=== PATIENT | female | born 1945 | race Caucasian/White ===

== ENCOUNTER 2016-07-25 18:54 | Emergency (ER) | payer MEDICARE, BC ==
--- OUTSIDE RECORDS SUMMARY | 2016-07-25 19:35 | XMS REPORT | Continuity of Care Document ---
:1945 Author Organization [facility] ([facility]) Address [place] [address] Phone [phone] Care Team Providers Name Role Phone Johnie Rai Primary Care Provider [phone] Source Comments This disclosure is being made pursuant to the Care Everywhere program, applicable federal and state laws, and may not contain all informaitonavailable regarding this patient.[facility] ([facility]) Active Allergies and Adverse Reactions No Known Allergies Current Medications Prescription Sig. Disp. Refills Start Date End Date Status amLODIPine 5 mg tablet Take 5 mg by Active mouth daily anastrozole 1 mg tablet Take 1 mg by Active mouth daily benazepril 20 mg tablet Take 40 mg by Active mouth daily cyclobenzaprine 10 mg Take 10 mg by Active tablet mouth 2 times daily as needed furosemide 40 mg tablet Take 40 mg by Active mouth daily lovaSTATIN 40 mg tablet Take 40 mg by Active mouth every evening nitroglycerin 0.[address] 0.4 mg Active tablet under the tongue every 5 minutes as needed omeprazole 20 mg enteric Take 20 mg by Active coated capsule mouth daily diltiazem 240 mg ER Take 1 capsule 30 capsule 11 12/27/2014 Active capsule (240 mg total) by mouth daily Active Problems Problem Noted Date Palpitations 12/03/2014 Essential hypertension 12/03/2014 Hyperlipidemia 12/03/2014 Morbid obesity 12/03/2014 Social History Tobacco Use Types Packs/Day Years Used Date Never Assessed Last Filed Vital Signs Vital Sign Reading Time Taken Blood Pressure 110/68 12/04/2014 1:39 PM CDT Pulse 60 12/04/2014 1:39 PM CDT Temperature - - Respiratory Rate - - Height 1.524 m (5') 12/04/2014 1:39 PM CDT Weight 130.636 kg (288 lb) 12/04/2014 1:39 PM CDT Body Mass Index 56.25 12/04/2014 1:39 PM CDT Oxygen Saturation - - Plan of Care Health Maintenance Due Date Last Done Comments HCV Screening 1945 Hepatitis B Vaccine (1 of 3 - Primary Series) 1945 Tdap Vaccine 1957 Lipid Disorder Screening 1964 Td Vaccine 1964 Mammogram 1986 Colonoscopy 04/15/1996 Zoster Vaccine 2006 Osteoporosis Screening (DXA Bone Density) 04/17/2011 Pneumococcal Vaccine (1 of 2 - PCV13) 04/17/2011 Influenza Vaccine: Seasonal (#1) 09/08/2015 Results from Last 3 Months Not on file
--- OUTSIDE RECORDS SUMMARY | 2016-07-25 19:35 | XMS REPORT | CCD ---
:1945 Author Name SHERIE WATTS Address [address] [facility] [place] [place] [address] Care Team Providers Name Role Phone LLOYD MUNOZ Attending Physician Unavailable Allergies Allergy Code Allergy Type Reaction Status No Known Drug Allergies 0 Drug allergy Active Active Medications Unknown or Not Available. Problems Unknown or Not Available. Procedures Procedure Code Procedure Type Date [place] [address] CPT 04/20/2016 intraocular lens prosthes Results Unknown or Not Available. Function Status Unknown or Not Available. History of Immunizations Unknown or Not Available. Plan of Treatment Unknown or Not Available. Social History Smoking Status Code Start Date End Date Never smoker [id number] Vital Signs Vital Sign Value Unit Date/Time Recent/Initial? Weight Measured 225.1 [lb_av] 04/15/2016 14:35 Initial VS Height 60 [in_i] 04/15/2016 14:35 Initial VS BMI (Body Mass Index) 43.96 kg/m2 04/15/2016 14:35 Initial VS BSA (Body Surface Area) 2.08 m2 04/15/2016 14:35 Initial VS Function Status Unknown or Not Available. Goals Unknown or Not Available. ASSESSMENTS Unknown or Not Available. Health Concerns Section Unknown or Not Available.
--- NOTE | 2016-07-25 19:44 | ERNOTE ---
Integumentary HPI - General Presenting Symptoms: insect bite Time Seen by Provider: 07/25/16 19:23 Source: patient Exam Limitations: no limitations - Immun/Allergies/Home Medications Immunizations: IMMUNIZATION HX Immunizations Up to Date Yes History of Influenza Vaccine No Hx Pneumococcal Vaccination No Allergies/Adverse Reactions: Allergies Allergy/AdvReac Type Severity Reaction Status Date / Time No Known Allergies Allergy Verified 06/22/14 14:39 Home Medications: HOME MEDICATIONS Benazepril HCl [Lotensin] 40 mg PO DAILY 01/12/13 [Last Taken Unknown] Calcium Carbonate/Vitamin D3 [Calcium 600 + Vit D 400 Tablet] 1 each PO BID 07/20 [Last Taken Unknown] Furosemide [Lasix] 40 mg PO DAILY 01/12/13 [Last Taken Unknown] Lovastatin [Altoprev] 40 mg PO DAILY 01/12/13 [Last Taken Unknown] Naproxen [Naprosyn] 500 mg PO BID PRN 01/12/13 [Last Taken Unknown] Omeprazole [Prilosec] 20 mg PO DAILY 01/12/13 [Last Taken Unknown] - History of Present Illness Narrative: About three weeks ago the patient noticed a tick on her right breast when getting dressed at night. The tick was not there in the morning, she pulled the tick of, has had very small area of redness at the side that has increased more over the last couple of days. She is concerned as she has a nephew that was diagnosed with lyme's disease. She feels slightly fatigued but has no other new symptoms Review of Systems - Review of Systems Constitutional: Present: fatigue. Absent: recent illness, fever EYE: Absent: vision changes ENT: Absent: sore throat Respiratory: Absent: shortness of breath, cough Cardiology: Absent: chest pain Gastrointestinal/Abdominal: Absent: nausea, vomiting, diarrhea, abdominal pain Genitourinary: Present: no symptoms reported Musculoskeletal: Present: no symptoms reported Skin: Present: See HPI Neurological: Absent: headache - Patient's Past Medical History Patient History - Medical: Arthritis Patient History - Cardiac/Respiratory: Hypertension, Hyperlipidemia Patient History - Cancer: Breast Patient History - Surgical Procedures: Other, Orthopedic Patient History - Other: None - Social History Living Situations: spouse Psych History: No pertinent hx Smoking Status: Never smoker Have you smoked in the past 12 months: No Do you dip or chew tobacco: No Alcohol Use: rarely Drug Use: none - Immunizations Immunizations Up to Date: Yes Hx Pneumococcal Vaccination: No History of Influenza Vaccine: No Physical Exam - Physical Exam General Appearance: Present: wd/wn, alert, no apparent distress, obese Respiratory: Present: no respiratory distress, normal breath sounds, no accessory muscle use, lungs clear, other - on right breast 1cm area of mild erythema with small central scab, no swelling, no induration, not tender Cardiovascular/Chest: Present: regular rate, rhythm, no murmur Neurological Exam: Present: alert, oriented, normal mood/affect Skin Exam: Present: normal color, warm/dry ED Progress - Vital Signs Patient's Vital Signs:: I have reviewed the patient's vital signs. Vital Signs: Vital Signs 07/25/16 19:06 Temperature 36.6 C Pulse Rate 76 Respiratory 14 Rate Blood Pressure 160/72 O2 Sat by Pulse 98 Oximetry - Progress/Reassessment Chief Complaint: Insect Bite Departure Clinical Impression: Tick bite of right female breast Qualifiers: Encounter type: initial encounter Qualified Code(s): S20.161A - Insect bite ( nonvenomous) of breast, right breast, initial encounter; W57.XXXA - Bitten or stung by nonvenomous insect and other nonvenomous arthropods, initial encounter - Departure Disposition: Home self-care Condition: Good Instructions: Insect Bite Additional Instructions: your risk of lyme disease is very low, you blood test results will not be available till Tuesday, if you don't hear from us by give us a call Referrals: Josselin Joseph, [Associate] -
[2016-07-25 19:46] VITALS: BP 148/73
[2016-07-29 07:52] LABS: 18KD (IGG) Band NON-REACTIVE; 23KD (IGG) Band NON-REACTIVE; 28KD (IgG) Band NON-REACTIVE; 30KD (IgG) Band NON-REACTIVE; 39KD (IgG) Band NON-REACTIVE; 39KD (IgM) Band NON-REACTIVE; 41KD (IgG) Band NON-REACTIVE; 45KD (IgG) Band NON-REACTIVE; 58KD (IgG) Band NON-REACTIVE; 66KD (IgG) Band NON-REACTIVE; 93KD (IgG) Band NON-REACTIVE; B burgdorferi IgM WB NEGATIVE (NEGATIVE); B.burgdorferi Ab (IgG) WB NEGATIVE (NEGATIVE)
[2016-07-29 09:51] LABS: 41KD (IgM) Band NON-REACTIVE
== END 2016-07-25 19:45 | disposition home or self-care (01) ==
LOC: ER 18:54
DX: S20.161A Insect bite (nonvenomous) of breast, right breast, initial encounter (principal); W57.XXXA Bitten or stung by nonvenomous insect and other nonvenomous arthropods, initial encounter; Z85.3 Personal history of malignant neoplasm of breast; I10 Essential (primary) hypertension; E78.5 Hyperlipidemia, unspecified

== ENCOUNTER 2016-08-17 21:04 | Emergency (ER) | payer MEDICARE, BC ==
--- NOTE | 2016-08-17 21:34 | ERNOTE ---
<Jose Monae - Last Filed: 08/17/16 21:59> Syncope ER HPI Date of Service: 08/17/16 Stated Complaint: IRREGULAR HEARTBEAT Time Seen by Provider: 08/17/16 21:22 Source: patient Exam Limitations: no limitations Immunizations: IMMUNIZATION HX Immunizations Up to Date Yes History of Influenza Vaccine No Hx Pneumococcal Vaccination No Allergies/Adverse Reactions: Allergies No Known Allergies Allergy (Verified 06/22/14 14:39) Home Medications: HOME MEDICATIONS Benazepril HCl [Lotensin] 40 mg PO DAILY 01/12/13 [Last Taken Unknown] Calcium Carbonate/Vitamin D3 [Calcium 600 + Vit D 400 Tablet] 1 each PO BID 07/20 [Last Taken Unknown] Furosemide [Lasix] 20 mg PO DAILY 01/12/13 [Last Taken Unknown] Lovastatin [Altoprev] 40 mg PO DAILY 01/12/13 [Last Taken Unknown] Naproxen [Naprosyn] 250 mg PO BID PRN 01/12/13 [Last Taken Unknown] Omeprazole [Prilosec] 20 mg PO DAILY PRN 01/12/13 [Last Taken Unknown] Hydrochlorothiazide [Hydrodiuril] 25 mg PO DAILY 08/17/16 [Last Taken Unknown] Sulfamethoxazole/Trimethoprim [Bactrim Ds] 1 tab PO BID #7 tab 08/17/16 [Last Taken Unknown] - History of Present Illness Narrative: 71 year old female presents to the ED for what she can describe as a near syncopal episode. patient states she was sitting at [employer] when she felt like she was fading away and then suddenly she was back. described as having tunnel vision for a few seconds. denies any LOC and states that she has been having palpations or episodes where she can really feel her heart beat in her chest. patient states that she has been having these episodes for several days but after the episode at [employer] she felt the need for a ER visit. patient states she has had these episodes in the past and has had a very extensive work up with EKG, ECHO and cardiac cath resulting in no findings. patient is not SOB. Incidentally patient did donate blood on . Date (Duration): 08/17/16 Prior Episodes: Present: multiple episodes today, recent history Symptoms prior to episode: Present: none Activity at time of episode: Present: sitting Character of event: Present: no loss of consciousness, almost passed out. Absent: incontinent, confused after event Location of Injury: Present: none Current Symptoms: Present: other - states that she can feel her heart beat in her chest. . Absent: blurred vision, chest pain, shortness of breath, abd pain , nausea, vomiting, light headedness, dizziness, headache Prior Treament: Reports: similar symptoms before Review of Systems - Review of Systems Constitutional: Present: no symptoms reported EYE: Present: no symptoms reported ENT: Present: no symptoms reported Respiratory: Present: no symptoms reported Cardiology: Present: See HPI. Absent: edema Gastrointestinal/Abdominal: Present: no symptoms reported Genitourinary: Present: no symptoms reported Musculoskeletal: Present: no symptoms reported Skin: Present: no symptoms reported Neurological: Present: no symptoms reported Endocrine: Present: no symptoms reported Hematologic/Lymphatic: Present: no symptoms reported Psych: Present: no symptoms reported All Other Systems: All systems neg except as marked - Patient's Past Medical History Patient History - Medical: Arthritis Patient History - Cardiac/Respiratory: Hypertension, Hyperlipidemia Patient History - Cancer: Breast Patient History - Surgical Procedures: Other, Orthopedic Patient History - Other: None LMP (females 10-50): Menopausal - Social History Living Situations: home Psych History: No pertinent hx Smoking Status: Never smoker Have you smoked in the past 12 months: No Do you dip or chew tobacco: No Alcohol Use: rarely Drug Use: none - Immunizations Immunizations Up to Date: Yes Hx Pneumococcal Vaccination: No History of Influenza Vaccine: No Physical Exam - Physical Exam Narrative: patients exam is WNL, denies chest pain and SOB. General Appearance: Present: wd/wn, alert, no apparent distress Head Exam: Present: normal inspection, no evidence of injury Eye Exam: Normal inspection: bilateral Ears, Nose, Throat: Present: normal ENT inspection, normal pharynx Neck: Present: normal inspection, nontender, supple, full range of motion Respiratory: Present: no respiratory distress, no accessory muscle use, chest nontender, other - crackles at bases Cardiovascular/Chest: Present: regular rate, rhythm, no murmur, normal peripheral pulses. Absent: tachycardia, bradycardia, irregularly irregular, extra beats, gallop/S3, gallop/S4, systolic murmur, diastolic murmur, friction rub, chest tenderness, JVD Peripheral Pulses: N=norm/S=strong/W=weak/B=bound/A=absent: Radial (R): Normal, Radial (L): Normal, Dorsalis-pedis (R): Normal, Dorsalis-pedis (L): Normal Gastrointestinal/Abdominal: Present: normal bowel sounds, nontender, nondistended, soft, no organomegaly Back Exam: Present: normal inspection, normal range of motion, no CVA tenderness , no vertebral tenderness Extremity Exam: Present: normal inspection, non-tender, normal range of motion, extremity edema - trace Neurological Exam: Present: alert, oriented, normal mood/affect, no motor/ sensory deficits, 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 Absent: facial droop, motor weakness Skin Exam: Present: normal color, warm/dry Lymphatic Exam: Present: no adenopathy ED Progress - Vital Signs Patient's Vital Signs:: I have reviewed the patient's vital signs. Vital Signs: Vital Signs 08/17/16 21:08 Temperature 36.5 C Pulse Rate 80 Respiratory 19 Rate Blood Pressure 163/78 O2 Sat by Pulse 99 Oximetry - EKG EKG: NSR EKG read: Reviewed by me EKG Comments: interp by ED attending. NSR - Progress/Reassessment Chief Complaint: Syncopal Episode - Transfer of Care Physician Sign Out: Jose Monae Brief History: near syncopal episode, palpitations Receiving Physician: Selvin Vela Pending Results: Labs, X-ray results Expected Disposition: Discharge Plan - Plan Plan: patient states she has had an extensive cardiac workup r/t these episodes with no findings. patient denies chest pain but states that she can feel her heart beat in her chest. Departure Clinical Impression: Alteration consciousness UTI (urinary tract infection) Qualifiers: Urinary tract infection type: acute cystitis Hematuria presence: without hematuria Qualified Code(s): N30.00 - Acute cystitis without hematuria - Departure Disposition: Home Follow Up Needed Condition: Good Instructions: Urinary Tract Infection, Adult, [id number] Additional Instructions: See your regular doctor as scheduled. Drink plenty of water. You may eat some more high potassium foods as your potassium is a little low. Referrals: Josselin Joseph DO [Primary Care Provider] - Prescriptions: Sulfamethoxazole/Trimethoprim [Bactrim Ds] 1 tab PO BID #7 tab <Selvin Vela - Last Filed: 08/18/16 22:34> Syncope ER HPI Immunizations: IMMUNIZATION HX Immunizations Up to Date Yes History of Influenza Vaccine No Hx Pneumococcal Vaccination No Physical Exam - Physical Exam Gastrointestinal/Abdominal: Present: other - No bladder tenderness Back Exam: Absent: CVA tenderness (R), CVA tenderness (L) ED Progress - Results and Orders Patient's Lab Results:: I have reviewed the patient's lab results. Results and Orders: Laboratory Tests 08/17/16 08/17/16 08/17/16 21:40 21:40 22:18 WBC 9.4 Hgb 11.7 L Hct 37.3 Plt Count 172 Sodium 138 Potassium 3.3 L Chloride 102 Carbon Dioxide 28.3 Anion Gap 11.0 BUN 28 H Creatinine 1.07 Est GFR (Non-Af Amer) 54 L D Random Glucose 120 H Calcium 8.9 Total Bilirubin 0.5 AST 23 ALT 16 L Alkaline Phosphatase 59 Troponin I Less than 0.017 B-Natriuretic Peptide 101 Total Protein 7.4 Albumin 3.7 Urine Color Yellow Urine Appearance Cloudy Urine pH 6.0 Ur Specific [place] 1.020 Urine Protein Negative Urine Glucose (UA) Negative Urine Ketones Negative Urine Blood Negative Urine Nitrate Positive H Urine Bilirubin Negative Urine Urobilinogen Normal Ur Leukocyte Esterase Negative Urine RBC Trace Urine WBC Trace H Ur Epithelial Cells 0-5 Urine Bacteria 3+ H Urine Culture Comments Culture to follow - Vital Signs Patient's Vital Signs:: I have reviewed the patient's vital signs. Vital Signs: Vital Signs 08/17/16 08/17/16 08/17/16 21:08 21:22 21:25 Temperature 36.5 C Pulse Rate 80 84 79 Respiratory 19 18 Rate Blood Pressure 163/78 169/63 O2 Sat by Pulse 99 96 Oximetry 08/17/16 08/17/16 08/17/16 21:36 21:50 22:18 Temperature Pulse Rate 91 67 65 Respiratory 18 18 Rate Blood Pressure 184/72 191/98 O2 Sat by Pulse 99 98 Oximetry 08/17/16 22:41 Temperature Pulse Rate 63 Respiratory 18 Rate Blood Pressure 177/78 O2 Sat by Pulse 97 Oximetry - X-Ray X-Ray #1 X-Ray: chest Interpretation: Reviewed by me X-ray Comments: No acute abnormalities
[2016-08-17 22:00] LABS: Hematocrit 37.3 % (37.0-47.0); Hemoglobin 11.7 gm/dL (12.5-16.0); Mean Cell Volume 85.2 fl (78-100); Mean Corpuscular Hemoglobin 26.7 pg (27-31); Mean Corpuscular Hgb Conc 31.4 g/dl (32-36); Mean Platelet Volume 12.7 fl (6.0-9.5); Neutrophil # 6.6 K/mm3 (1.3-6.0); Neutrophil % 69.9 % (42-75.0); Platelet Count 172 K/mm3 (150-450); Red Blood Count 4.38 M/mm3 (4.2-5.4); Red Cell Distribution Width 16.9 % (11.5-14.0); White Blood Count 9.4 K/mm3 (4.0-10.5)
[2016-08-17 22:10] LABS: Troponin I Less than 0.017 ng/ml (0.00-0.10)
[2016-08-17 22:13] LABS: ALT 16 U/L (19-67); AST 23 U/L (0-48); Albumin * 3.7 gm/dl (3.4-5.0); Alkaline Phosphatase * 59 U/L (50-170); BNP * 101 pg/mL (5-325); BUN/Creatinine Ratio 26.2 (9.0-21.6); Bilirubin, Total 0.5 mg/dL (0.0-1.1); Blood Urea Nitrogen 28 mg/dL (3-23); Ca. Corrected For Albumin 8.8 mg/dL (8.4-10.2); Calcium * 8.9 mg/dL (7.9-10.9); Carbon Dioxide 28.3 mmol/L (24-32.6); Chloride 102 mmol/L (97-106); Glucose * 120 mg/dL (70-110); Potassium 3.3 mmol/L (3.4-4.6); Sodium 138 mmol/L (132-142); Total Protein 7.4 gm/dL (6.2-8.2)
[2016-08-17 22:28] LABS: Urine Bilirubin Negative (NEGATIVE); Urine Blood Negative /ul (NEGATIVE); Urine Ketone Negative (NEGATIVE); Urine Protein Negative (NEGATIVE); Urine Urobilinogen Normal (NORMAL)
[2016-08-17 22:39] LABS: Urine Appearance Cloudy; Urine Color Yellow; Urine Nitrite Positive (NEGATIVE); Urine RBC TRACE /hpf (0-5); Urine WBC TRACE /hpf (0-5)
[2016-08-17 22:40] LABS: Urine Bacteria 3+
[2016-08-17] MEDS ORDERED: SULFAMETHOXAZOLE/TRIMETHOPRIM 1 TAB TABLET PO ONE (22:56)
[2016-08-17] MEDS ORDERED: SULFAMETHOXAZOLE/TRIMETHOPRIM 1 TAB TABLET ONE (22:57)
[2016-08-18 00:11] VITALS: BP 167/70
== END 2016-08-17 23:02 | disposition home or self-care (01) ==
LOC: ER 21:04
DX: R40.4 Transient alteration of awareness (principal); N30.00 Acute cystitis without hematuria; B96.20 Unspecified Escherichia coli [E. coli] as the cause of diseases classified elsewhere; I10 Essential (primary) hypertension; E78.5 Hyperlipidemia, unspecified